=== PATIENT | female | born 1965 | race African-American/Black ===

== ENCOUNTER → 2023-01-30 | Outpatient (CLI) | payer OTHER ==
--- NOTE | 2023-01-30 12:00 | XR ---
EXAMINATION TYPE: XR Hip Bilateral Complete DATE OF EXAM: 01/30/2023 11:16 AM INDICATION: Patient age:Female; 57 years old; Reason for study: M25.551 M25.552 M25.562; COMPARISON: None TECHNIQUE: The bilateral hips was examined in the frontal and lateral projections and a AP pelvis. FINDINGS: Post arthroplasty changes of the left hip, hardware is intact, alignment is appropriate. No evidence of fracture. Postoperative changes of the soft tissues with subcutaneous gas. No evidence o f any acute osseous pathology or joint dislocation. Mild osteophyte formation of the right acetabulum . Mild osteophyte formation of the sacroiliac joints bilaterally. Few scattered pelvic phlebolith are present. IMPRESSION: 1. Post left hip arthroplasty with hardware intact and in appropriate alignment. No acute fracture. 2. Mild right hip osteoarthrosis 3. No evidence of fracture.
--- NOTE | 2023-01-30 12:01 | XR ---
EXAMINATION TYPE: XR knee limited LT DATE OF EXAM: 01/30/2023 11:17 AM INDICATION: Patient age:Female; 57 years old; Reason for study: M25.551 M25.552 M25.562; [facility]. COMPARISON: None. TECHNIQUE: The Left knee(s) was examined in Frontal, lateral and oblique projections. FINDINGS: No evidence of any acute osseous pathology, soft tissue swelling, or joint effusion is no halley. Tricompartmental osteophyte formation involving the femoral condyles, tibial plateau and patella. Mi ld joint space narrowing is present most proximal in the patellofemoral joint. There is a fabella pre sent. IMPRESSION: 1. No acute osseous pathology. 2. Moderate tricompartmental osteoarthritic changes most pronounced in the patellofemoral joint.
== END | disposition home or self-care (01) ==
LOC: RADXRMAIN 10:38
PROVIDERS: ATTEND Family Medicine
DX: M16.11 Unilateral primary osteoarthritis, right hip (principal); M17.12 Unilateral primary osteoarthritis, left knee; M25.552 Pain in left hip; Z96.642 Presence of left artificial hip joint
CPT/HCPCS: 73521